=== PATIENT | female | born 1965 | race African-American/Black ===

== ENCOUNTER 2016-09-28 09:47 | Emergency (ER) | payer MEDICARE, OTHER ==
[~2016-09-28] VITALS: Ht 157.5 cm; Wt 77.1 kg
[~2016-09-28 09:47] MED LIST: ALBU8.5H6 INH; LOSA25TA4 PO; LURA20TA PO
[2016-09-28 10:17] VITALS: BP 148/93
[2016-09-28] MEDS ORDERED: PERM60CR11 TP (10:31)
[2016-09-28] MEDS ORDERED: PRED20TA PO (10:31)
--- NOTE | 2016-09-28 10:31 | PHYS DOC ---
Past Medical History Past Medical History: Bronchitis, Depression, Diabetes-Type II, Hypertension Past Surgical History: Hysterectomy Smoking: Less than 1pk/day Alcohol Use: None Drug Use: None Adult General Chief Complaint Chief Complaint: SKIN PROBLEM HPI HPI Patient is a 51 year old female who presents with itchy rash for the last 3-4 weeks. She denies any change in household products or new medications. No other household members have a similar rash. She has tried washing her linens without improvement in her rash. She's been taking up to 4 Benadryl at a time to help with the itching. She denies fevers, dyspnea, or angioedema. She does not have a PCP. Review of Systems Review of Systems Constitutional: Denies fever or chills. [] Eyes: Denies change in visual acuity, redness, or eye pain. [] HENT: Denies ear pain, nasal congestion or sore throat. Denies angioedema. Respiratory: Denies cough or shortness of breath. [] Musculoskeletal: Denies back pain or joint pain. [] Integument: Reports pruritic rash. Neurologic: Denies headache, focal weakness or sensory changes. [] All systems reviewed and negative unless otherwise stated in the HPI. Allergies Allergies Allergies Coded Allergies Type Severity Reaction Last Updated Verified No Known Drug Allergies 09/28/16 No Physical Exam Physical Exam Constitutional: Well developed, well nourished, no acute distress, non-toxic appearance. [] HENT: Normocephalic, atraumatic, oropharynx moist. [] Eyes: PERRLA, EOMI, conjunctiva normal, no discharge. [] Neck: Normal range of motion, no tenderness, supple, no stridor. [] Skin: Warm, dry, no erythema. Generalized, scattered, fine papular lesions with diffuse excoriation from scratching. There is no evidence of abscess or cellulitis associated with any of the lesions. Back: No midline tenderness, no CVA tenderness. [] Extremities: No tenderness, ROM intact, no edema. Distal pulses equal bilaterally. [] Neurologic: Alert and oriented X 3, normal motor function, normal sensory function, no focal deficits noted. [] Psychologic: Affect normal, judgement normal, mood normal. [] Current Patient Data Vital Signs Vital Signs Date Time Temp Pulse Resp B/P Pulse Ox O2 Delivery O2 Flow Rate FiO2 09/28/16 10:17 97.5 73 18 98 Room Air 97.5 EKG EKG [] Radiology/Procedures Radiology/Procedures [] Course & Med Decision Making Course & Med Decision Making Pertinent Labs and Imaging studies reviewed. (See chart for details) [] Dragon Disclaimer Dragon Disclaimer This electronic medical record was generated, in whole or in part, using a voice recognition dictation system. Departure Departure Impression: Primary Impression: Rash Disposition: HOME, SELF-CARE Condition: STABLE Referrals: PEGGY GUEVARA MD Patient Instructions: Rash, Eekn-ck-Xkec Additional Instructions: You have been seen for rash. At this time, it is unclear what is causing the rash, however it appears that it may be due to scabies. Please apply the prescribed cream all over your body and leave on for 8-12 hours. Please wash all of your linens in hot water while you are doing the skin treatment. Please follow-up with the electrical engineering drafting officer listed below if your rash continues. Return to emergency department if you have any new or concerning symptoms. Scripts Permethrin (Elimite)60 Gm Cream..g.60 Gm TP 1X #60 Prov:SIDNEY ÁLVAREZ 09/28/16 Prednisone 20 Mg [id number] Mg PO DAILY 5 Days Prov:SIDNEY ÁLVAREZ 09/28/16 SIDNEY ÁLVAREZ Sep 28, 2016 10:31
== END 2016-09-28 10:50 | disposition home or self-care (01) ==
LOC: ER 09:47
DX: R21 Rash and other nonspecific skin eruption (principal); E11.9 Type 2 diabetes mellitus without complications; I10 Essential (primary) hypertension; F17.200 Nicotine dependence, unspecified, uncomplicated
CPT/HCPCS: 99283

== ENCOUNTER 2017-02-07 13:14 | Emergency (ER) | payer MEDICARE, OTHER ==
[~2017-02-07] VITALS: Ht 157.5 cm; Wt 83.5 kg
[~2017-02-07 13:14] MED LIST changes: +PERM60CR11 TP; +PRED20TA PO
[2017-02-07 13:22] VITALS: BP 142/88
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
[2017-02-07] MEDS ORDERED: HYDR-971 PO (14:12)
[2017-02-07] MEDS ORDERED: HYDROcodone/APAP 5/325MG 1 TAB TABLET PO ONE (14:30)
== END 2017-02-07 14:30 | disposition home or self-care (01) ==
LOC: ER 13:42
DX: S22.42XA Multiple fractures of ribs, left side, initial encounter for closed fracture (principal); F32.9 Major depressive disorder, single episode, unspecified; E11.9 Type 2 diabetes mellitus without complications; I10 Essential (primary) hypertension; X58.XXXA Exposure to other specified factors, initial encounter; Y93.89 Activity, other specified; Y92.89 Other specified places as the place of occurrence of the external cause; Y99.8 Other external cause status
CPT/HCPCS: 71111; 99284-25

== ENCOUNTER 2017-05-05 12:03 | Emergency (ER) | payer OTHER ==
[~2017-05-05] VITALS: Ht 157.5 cm; Wt 66.7 kg
[~2017-05-05 12:03] MED LIST changes: +HYDR-971 PO
[2017-05-05 12:19] VITALS: BP 149/93
[2017-05-05] MEDS ORDERED: CYCL5TAB PO (12:58)
[2017-05-05] MEDS ORDERED: PRED50TA PO (12:58)
--- NOTE | 2017-05-05 12:58 | PHYS DOC ---
Past Medical History Past Medical History: Anxiety, Bronchitis, Depression, Diabetes-Type II, Hypertension Past Surgical History: Hysterectomy Alcohol Use: None Drug Use: None Adult General Chief Complaint Chief Complaint: SKIN RASH/ABSCESS HPI HPI Patient is a 51 year old female who presents with rash. The patient reports diffuse pruritic rash to face, torso, extremities. She denies exposure to plants, new soaps/lotions/detergents, foods/medications. She took benadryl at home without relief. Denies face/tongue/lip swelling, shortness of breath, vomiting, diarrhea. Also complains of lower back pain without injury or fall. She denies abdominal pain, extremity numbness/weakness, saddle anesthesia, bowel /bladder incontinence/retention. Review of Systems Review of Systems Constitutional: Denies fever or chills HENT: Denies nasal congestion or sore throat Respiratory: Denies cough or shortness of breath Cardiovascular: Denies chest pain GI: Denies abdominal pain, nausea, vomiting, or diarrhea Musculoskeletal: Reports back pain, denies joint pain Integument: Reports rash Neurologic: Denies headache Allergies Allergies Allergies Coded Allergies Type Severity Reaction Last Updated Verified No Known Drug Allergies 09/28/16 No Physical Exam Physical Exam Constitutional: Well developed, well nourished, no acute distress, non-toxic appearance. HENT: Normocephalic, atraumatic, bilateral external ears normal, oropharynx moist, nose normal. no face/tongue/lip swelling. Eyes: conjunctiva normal, no discharge. Neck: supple, no stridor. Cardiovascular: RRR, no murmurs, no edema. Lungs & Thorax: LCTAB, no wheezing, no respiratory distress. Abdomen: nondistended. Skin: diffuse erythema to face, torso, extremities without obvious discrete lesions though there are excoriations Back: no midline tenderness with palpation of spine, so step offs, lower lumbar region there is bilateral paraspinous muscle tenderness, no CVA tenderness Extremities: No tenderness, no edema. Neurologic: Alert and oriented X 3, symmetric strength/sensation to lower extremities. Current Patient Data Vital Signs Vital Signs Date Time Temp Pulse Resp B/P (MAP) Pulse Ox O2 Delivery O2 Flow Rate FiO2 05/05/17 12:19 98.0 84 18 96 Room Air 98.0 EKG EKG [] Radiology/Procedures Radiology/Procedures [] Course & Med Decision Making Course & Med Decision Making Pertinent Labs and Imaging studies reviewed. (See chart for details) The patient presents with pruritic rash likely contact dermatitis. Gave prescription for prednisone & recommend continue benadryl. Flexeril for back pain plus NSAIDs, apply heating pad & try to stretch. Follow up with PCP in 2- 3 days if not improving. Come back for face/tongue/lip swelling, severe shortness of breath, symptoms of cauda equina syndrome, any otherwise worsening condition. Discharged home in stable condition. [] Dragon Disclaimer Dragon Disclaimer This electronic medical record was generated, in whole or in part, using a voice recognition dictation system. Departure Departure Impression: Primary Impression: Contact dermatitis Additional Impression: Lower back pain Disposition: HOME, SELF-CARE Condition: STABLE Referrals: UNKNOWN PCP NAME (PCP) Patient Instructions: Back Pain, Adult, Acch-qa-Brmf, Contact Dermatitis, Easy- to-Read Additional Instructions: You were seen in the emergency department today for rash and back pain. Please continue to take Benadryl for itching. Take prednisone to control allergic symptoms. Use Flexeril as needed for pain and spasm in your back. Use a heating pad. Follow-up with primary care physician for additional concerns. Return to the emergency department for face/tongue/lip swelling, severe shortness of breath, numbness or weakness in your legs, loss of control of bowels or bladder , any otherwise worsening condition. Scripts Cyclobenzaprine Hcl (CYCLOBENZAPRINE HCL) 5 Mg Tablet 1 TAB PO TID Y for MUSCLE SPASMS, #10 TAB Prov: HAILEE PRICE MD 05/05/17 Prednisone (PREDNISONE) 50 Mg Tablet 1 TAB PO DAILY, #5 TAB Prov: HAILEE PRICE MD 05/05/17 Problem Qualifiers Primary Impression: Contact dermatitis Contact dermatitis type: unspecified Contact dermatitis trigger: unspecified trigger Qualified Codes: L25.9 - Unspecified contact dermatitis, unspecified cause Additional Impression: Lower back pain Chronicity: chronic Back pain laterality: midline Sciatica presence: without sciatica Qualified Codes: M54.5 - Low back pain; G89.29 - Other chronic pain HAILEE PRICE MD May 05, 2017 12:58
== END 2017-05-05 13:10 | disposition home or self-care (01) ==
LOC: ER 12:03
DX: L25.9 Unspecified contact dermatitis, unspecified cause (principal); M54.5 Low back pain; E11.9 Type 2 diabetes mellitus without complications; I10 Essential (primary) hypertension; F32.9 Major depressive disorder, single episode, unspecified; Z90.710 Acquired absence of both cervix and uterus
CPT/HCPCS: 99283

== ENCOUNTER 2017-12-03 09:53 | Emergency (ER) | payer OTHER | END 2017-12-03 11:00 | disposition home or self-care (01) | LOC: ER 09:53 | DX: H10.9 Unspecified conjunctivitis (principal); E11.9 Type 2 diabetes mellitus without complications; I10 Essential (primary) hypertension | CPT/HCPCS: 99283 ==

== ENCOUNTER 2018-06-28 13:33 | Emergency (ER) | payer OTHER ==
[~2018-06-28] VITALS: Ht 157.5 cm; Wt 70.8 kg
[~2018-06-28 13:33] MED LIST changes: +CYCL5TAB PO; -LOSA25TA4 PO; +LOSA25TA5 PO; +OFLO5DRO EACHEYE; +PRED50TA PO
--- NOTE | 2018-06-28 14:27 | RAD ---
Portable chest, 06/28/2018: HISTORY: Shortness of breath Comparison is made to a study from 03/21/2014. The heart size and pulmonary vascularity are normal. There is minimal linear atelectasis in the right base. No pulmonary consolidation is seen. There is no evidence of pleural fluid. IMPRESSION: 1. Minimal right basilar atelectasis. 2. The chest is otherwise unremarkable. Electronically signed by: Mark Rebolledo MD (06/28/2018 2:24 PM) [facility]
[2018-06-28 14:31] LABS: BILIRUBIN,URINE SMALL (NEG); CLARITY,URINE CLEAR; COLOR,URINE AMBER; NITRITE,URINE NEGATIVE (NEG); PROTEIN,URINE NEGATIVE (NEG-TRACE); UROBILINOGEN,URINE >=8.0 mg/dL (0.2 mg/dL)
[2018-06-28 14:34] LABS: SQUAMOUS EPITHELIAL CELL,UR FEW /LPF
[2018-06-28 14:35] LABS: BACTERIA,URINE FEW /HPF (0-FEW); WBC,URINE OCC /HPF (0-4)
[2018-06-28 14:37] LABS: TRICHOMONAS,URINE PRESENT
--- NOTE | 2018-06-28 14:38 | EKG ---
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
[2018-06-28] MEDS ORDERED: HYDROcodone/APAP 5/325MG 1 TAB TABLET PO ONE (15:15)
--- NOTE | 2018-06-28 15:19 | PHYS DOC ---
Past Medical History Past Medical History: Anxiety, Bipolar, Bronchitis, Depression, Diabetes-Type II, Hypertension, Hepatitis Past Surgical History: Hysterectomy Alcohol Use: Occasionally Drug Use: None Adult General Chief Complaint Chief Complaint: HEADACHE HPI HPI Patient is a 52 year old [place] female with history of bipolar, anxiety who presents with left sided chest wall pain described as sharp, constant continuous for the past several hours. Pain is nonradiating. It is not associated with nausea vomiting fevers chills or sweats. Patient reports with productive cough with yellow sputum for the past several days. Also reports some urinary frequency and urgency with incontinence for the past 2 weeks. Reports a headache and sore throat secondary to cough. Patient receives monthly Haldol injection with recent injection last week. She has not follow-up with primary care provider a routine basis. No other acute symptoms or complaints. [] Review of Systems Review of Systems ROS as per HPI [] All other systems were reviewed and found to be within normal limits, except as documented in this note. Current Medications Current Medications Current Medications Medications (Trade) Dose Ordered Sig/Brianna Start Time Stop Time Status Last Admin Dose Admin Acetaminophen/ Hydrocodone Bitart (Lortab 5/325) 1 tab 1X ONCE 06/28/18 15:15 06/28/18 15:17 DC 06/28/18 15:35 1 TAB Allergies Allergies Allergies Coded Allergies Type Severity Reaction Last Updated Verified No Known Drug Allergies 09/28/16 No Physical Exam Physical Exam Constitutional: Well developed, well nourished, no acute distress, non-toxic appearance. [] HENT: Normocephalic, atraumatic, bilateral external ears normal, oropharynx moist, no oral exudates, nose normal. [] Eyes: PERRLA, EOMI, conjunctiva normal, no discharge. [] Neck: Normal range of motion, no tenderness, supple, no stridor. [] Cardiovascular:Heart rate regular rhythm, no murmur., negative Homans signs. [] Lungs & Thorax: patient's nonlabored, mildly diminished, coarse breath sounds bilaterally, left anterior chest, mid rib bony tenderness, no subcutaneous emphysema or over on crepitus. [] Abdomen: Bowel sounds normal, soft, no tenderness, no masses, no pulsatile masses. [] Extremities: No tenderness, no cyanosis, no clubbing, ROM intact, no edema. [] Neurologic: Alert and oriented, normal motor function, normal sensory function, no focal deficits noted. [] Psychologic: flat of affect.[] Current Patient Data Vital Signs Vital Signs Date Time Temp Pulse Resp B/P (MAP) Pulse Ox O2 Delivery O2 Flow Rate FiO2 06/28/18 15:35 28 95 Room Air 06/28/18 13:42 98.8 85 111/71 (84) 98.8 Lab Values Laboratory Tests Test 06/28/18 14:23 06/28/18 15:30 Urine Collection Type Unknown Urine Color Blessing Urine Clarity Clear Urine pH 6.0 Urine Specific [place] 1.025 Urine Protein Negative mg/dL (NEG-TRACE) Urine Glucose (UA) Negative mg/dL (NEG) Urine Ketones (Stick) Negative mg/dL (NEG) Urine Blood Negative (NEG) Urine Nitrite Negative (NEG) Urine Bilirubin Small (NEG) Urine Urobilinogen Dipstick >=8.0 mg/dL (0.2 mg/dL) Urine Leukocyte Esterase Small (NEG) Urine RBC 1-2 /HPF (0-2) Urine WBC Occ /HPF (0-4) Urine Squamous Epithelial Cells Few /LPF Urine Bacteria Few /HPF (0-FEW) Urine Mucus Mod /LPF Urine Trichomonas Present White Blood Count 8.4 x10^3/uL (4.0-11.0) Red Blood Count 4.69 x10^6/uL (3.50-5.40) Hemoglobin 14.8 g/dL (12.0-15.5) Hematocrit 44.2 % (36.0-47.0) Mean Corpuscular Volume 94 fL (79-100) Mean Corpuscular Hemoglobin 32 pg (25-35) Mean Corpuscular Hemoglobin Concent 34 g/dL (31-37) Red Cell Distribution Width 13.3 % (11.5-14.5) Platelet Count 186 x10^3/uL (140-400) Neutrophils (%) (Auto) 60 % (31-73) Lymphocytes (%) (Auto) 30 % (24-48) Monocytes (%) (Auto) 10 % (0-9) H Eosinophils (%) (Auto) 0 % (0-3) Basophils (%) (Auto) 0 % (0-3) Neutrophils # (Auto) 5.1 x10^3uL (1.8-7.7) Lymphocytes # (Auto) 2.5 x10^3/uL (1.0-4.8) Monocytes # (Auto) 0.8 x10^3/uL (0.0-1.1) Eosinophils # (Auto) 0.0 x10^3/uL (0.0-0.7) Basophils # (Auto) 0.0 x10^3/uL (0.0-0.2) D-Dimer (Loren) 0.49 ug/mlFEU (0.00-0.50) Sodium Level 146 mmol/L (136-145) H Potassium Level 4.1 mmol/L (3.5-5.1) Chloride Level 107 mmol/L (98-107) Carbon Dioxide Level 27 mmol/L (21-32) Anion Gap 12 (6-14) Blood Urea Nitrogen 7 mg/dL (7-20) Creatinine 0.6 mg/dL (0.6-1.0) Estimated GFR (Cockcroft-Gault) 126.5 BUN/Creatinine Ratio 12 (6-20) Glucose Level 95 mg/dL (70-99) Calcium Level 9.2 mg/dL (8.5-10.1) Total Bilirubin 0.4 mg/dL (0.2-1.0) Aspartate Amino Transferase (AST) 34 U/L (15-37) Alanine Aminotransferase (ALT) 52 U/L (14-59) Alkaline Phosphatase 109 U/L (46-116) Troponin I Quantitative < 0.017 ng/mL (0.000-0.055) Total Protein 7.5 g/dL (6.4-8.2) Albumin 3.1 g/dL (3.4-5.0) L Albumin/Globulin Ratio 0.7 (1.0-1.7) L Laboratory Tests 06/28/18 15:30 Laboratory Tests 06/28/18 15:30 EKG EKG [EKG: REVIEWED] Radiology/Procedures Radiology/Procedures Chest x-ray: No acute cardiopulmonary disease..] Course & Med Decision Making Course & Med Decision Making Pertinent Labs and Imaging studies reviewed. (See chart for details) [ with multiple medical complaints and productive cough with yellow sputum left anterior chest wall pain reproducible with deep breathing cough. EKG, labs and imaging was nondiagnostic. Will treat with acute bronchitis with pleurisy. Recommend PCP follow-up with supportive and antibiotic care. Term precautions reviewed. Patient verbalizes understanding and agreement discharge instructions prior to departure.] Dragon Disclaimer Dragon Disclaimer This electronic medical record was generated, in whole or in part, using a voice recognition dictation system. Departure Departure Impression: Primary Impression: Acute bronchitis Additional Impression: Pleurisy Disposition: HOME, SELF-CARE Condition: GOOD Referrals: NO PCP (PCP) Patient Instructions: Acute Bronchitis, Kbyk-ec-Bsjv, Pleurisy, [id number] Additional Instructions: Please Take antibiotics and use inhaler as directed. Take Tylenol for chest wall pain. Follow-up with your PCP in 2-3 days for reevaluation. Return to the ED if new or worsening symptoms. Problem Qualifiers CURTIS LAWSON DO Jun 28, 2018 15:19
[2018-06-28 16:06] LABS: BASO % 0 % (0-3); EOS % 0 % (0-3); HEMATOCRIT 44.2 % (36.0-47.0); HEMOGLOBIN 14.8 g/dL (12.0-15.5); LYMPH # 2.5 x10^3/uL (1.0-4.8); LYMPH % 30 % (24-48); MEAN CORPUSCULAR HEMOGLOBIN 32 pg (25-35); MEAN CORPUSCULAR HGB CONC 34 g/dL (31-37); MEAN CORPUSCULAR VOLUME 94 fL (79-100); MONO # 0.8 x10^3/uL (0.0-1.1); MONO % 10 % (0-9); NEUT # 5.1 x10^3uL (1.8-7.7); NEUT % 60 % (31-73); PLATELET COUNT 186 x10^3/uL (140-400); RED BLOOD COUNT 4.69 x10^6/uL (3.50-5.40); RED CELL DISTRIBUTION WIDTH 13.3 % (11.5-14.5); WHITE BLOOD COUNT 8.4 x10^3/uL (4.0-11.0)
[2018-06-28 16:18] LABS: CALCIUM 9.2 mg/dL (8.5-10.1); CREATININE 0.6 mg/dL (0.6-1.0); GFR 126.5; POTASSIUM 4.1 mmol/L (3.5-5.1)
[2018-06-28 16:30] LABS: ALBUMIN 3.1 g/dL (3.4-5.0); ALBUMIN/GLOBULIN RATIO 0.7 (1.0-1.7); TOTAL BILIRUBIN 0.4 mg/dL (0.2-1.0); TOTAL PROTEIN 7.5 g/dL (6.4-8.2)
[2018-06-28] MEDS ORDERED: CEPHALEXIN 250 MG CAPSULE. PO STA (17:11)
[2018-06-28] MEDS ORDERED: CEPH-264 PO (17:14)
[2018-06-28] MEDS ORDERED: PROAIR HFA8.5 GM INH (17:14)
[2018-06-28 18:04] VITALS: BP 129/67
== END 2018-06-28 18:19 | disposition home or self-care (01) ==
LOC: ER 13:33
DX: J20.9 Acute bronchitis, unspecified (principal); R09.1 Pleurisy; F31.9 Bipolar disorder, unspecified; F41.9 Anxiety disorder, unspecified; E11.9 Type 2 diabetes mellitus without complications; I10 Essential (primary) hypertension; R32 Unspecified urinary incontinence; R39.15 Urgency of urination; Z90.710 Acquired absence of both cervix and uterus
CPT/HCPCS: 36415; 71045; 80053; 81001; 84484; 85025; 85379; 87086; 93005; 99285-25

== ENCOUNTER 2019-02-08 12:42 | Emergency (ER) | payer OTHER ==
[~2019-02-08] VITALS: Ht 162.6 cm; Wt 77.3 kg
[~2019-02-08 12:42] MED LIST changes: +ALBU2.5V8 INH; +CEPH-264 PO; +HYDR-3164 PO; -HYDR-971 PO; -LOSA25TA5 PO; +LOSA25TA54 PO
[2019-02-08] MEDS ORDERED: KETOROLAC 30 MG/ML VIAL. IV ONE (13:30)
[2019-02-08 13:31] LABS: BILIRUBIN,URINE NEGATIVE (NEG); CLARITY,URINE CLEAR; COLOR,URINE YELLOW; NITRITE,URINE NEGATIVE (NEG); PROTEIN,URINE NEGATIVE (NEG-TRACE)
--- NOTE | 2019-02-08 13:38 | RAD ---
CHEST PA LATERAL History: Left-sided chest pain for 3 weeks Comparison: 06/28/2018 Findings: 2 views of the chest are submitted. There is again degree of elevation of the right hemidiaphragm. There is some atherosclerotic calcification near aortic arch. There is no lobar consolidation, pleural fluid, pneumothorax. There is some linear opacity of the right lung base in region of the right upper or right middle lobe. No displaced left rib fracture is identified by radiographs. Thoracic vertebral body stature is overall preserved. Heart size is within normal limits. Impression: 1. There is some linear opacity of the right lung base, likely atelectasis. Electronically signed by: Miki Finn MD (02/08/2019 1:35 PM) [id number]
[2019-02-08 13:41] LABS: BARBITURATES NEG (NEG); BENZODIAZEPINES NEG (NEG); CANNABINOIDS POS (NEG); COCAINE POS (NEG); METHADONE NEG (NEG); OPIATES NEG (NEG); PHENCYCLIDINE POS (NEG)
[2019-02-08 13:42] LABS: BASO % 0 % (0-3); EOS % 1 % (0-3); HEMATOCRIT 46.6 % (36.0-47.0); HEMOGLOBIN 15.5 g/dL (12.0-15.5); LYMPH # 2.8 x10^3/uL (1.0-4.8); LYMPH % 38 % (24-48); MEAN CORPUSCULAR HEMOGLOBIN 31 pg (25-35); MEAN CORPUSCULAR HGB CONC 33 g/dL (31-37); MEAN CORPUSCULAR VOLUME 93 fL (79-100); MONO # 0.5 x10^3/uL (0.0-1.1); MONO % 7 % (0-9); NEUT # 3.9 x10^3uL (1.8-7.7); NEUT % 54 % (31-73); PLATELET COUNT 171 x10^3/uL (140-400); RED BLOOD COUNT 5.01 x10^6/uL (3.50-5.40); RED CELL DISTRIBUTION WIDTH 13.4 % (11.5-14.5); WHITE BLOOD COUNT 7.2 x10^3/uL (4.0-11.0)
[2019-02-08 13:42] LABS: AMPHETAMINE/METHAMPHETAMINE NEG (NEG)
[2019-02-08 13:43] LABS: BACTERIA,URINE 0 /HPF (0-FEW); RBC,URINE 0 /HPF (0-2); SQUAMOUS EPITHELIAL CELL,UR FEW /LPF; WBC,URINE 0 /HPF (0-4)
[2019-02-08 14:00] LABS: CALCIUM 9.1 mg/dL (8.5-10.1); CREATININE 0.7 mg/dL (0.6-1.0); GFR 105.5; PROTHROMBIN TIME PATIENT 13.8 SEC (11.7-14.0)
[2019-02-08 14:04] LABS: ALBUMIN 3.3 g/dL (3.4-5.0); ALBUMIN/GLOBULIN RATIO 0.7 (1.0-1.7); MAGNESIUM 1.7 mg/dL (1.8-2.4); TOTAL BILIRUBIN 0.5 mg/dL (0.2-1.0)
--- NOTE | 2019-02-08 14:25 | EKG ---
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
[2019-02-08] MEDS ORDERED: CONTRAST GIVEN. MC PRN (14:30)
--- NOTE | 2019-02-08 14:46 | RAD ---
EXAM: CT Abdomen and Pelvis with IV contrast CLINICAL HISTORY: Progressing lower abdominal pain for several weeks.. COMPARISON: none TECHNIQUE: Helical CT of the abdomen and pelvis was performed following the administration of intravenous contrast. Axial, coronal and sagittal reformatted images were generated. PQRS compliance statement - One or more of the following individualized dose reduction techniques were utilized for this study: 1. Automated exposure control 2. Adjustment of the mA and/or kV according to patient size 3. Use of iterative reconstruction technique FINDINGS: Lower chest: Linear opacities in the left lower lobe, right lower lobe and middle lobe likely scarring/atelectasis. No pleural effusion. Abdomen and Pelvis: Diffuse hepatic hypoattenuation may be seen with hepatic steatosis. Liver is enlarged measuring approximately 20 cm in length. No focal liver lesion. Gallstones are seen within the gallbladder. No biliary ductal dilatation. Spleen is unremarkable. Adrenal glands are normal. Symmetric nephrograms. No focal renal lesion. No hydronephrosis. No hydroureter. Colonic diverticulosis without evidence for acute diverticulitis. The appendix is normal. No small or large bowel dilatation to suggest bowel obstruction. Fat-containing periumbilical hernia with mild associated fat infiltration. No abdominal or pelvic ascites. No abdominal or pelvic lymphadenopathy. Symphysis pubis degenerative changes are seen. Bones: Degenerative changes of the spine are seen. IMPRESSION: 1. Small fat-containing periumbilical hernia is seen with mild associated fat infiltration. Given the associated fat infiltration, this may be symptomatic. 2. Cholelithiasis 3. Hepatomegaly and hepatic steatosis 4. Diverticulosis without evidence for acute diverticulitis. 5. Appendix is normal. Electronically signed by: Calos Hernandez MD (02/08/2019 2:43 PM) [id number]
[2019-02-08] MEDS ORDERED: IOHEXOL 300 MG/ML 100ML VIAL. IV ONE (15:00)
[2019-02-08] MEDS ORDERED: NAPR-683 PO (15:27)
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
[2019-02-08 15:34] VITALS: BP 156/82
== END 2019-02-08 15:56 | disposition home or self-care (01) ==
LOC: ER 12:42
DX: R07.89 Other chest pain (principal); K80.20 Calculus of gallbladder without cholecystitis without obstruction; R79.89 Other specified abnormal findings of blood chemistry; F14.10 Cocaine abuse, uncomplicated; F12.10 Cannabis abuse, uncomplicated; F10.10 Alcohol abuse, uncomplicated; Y90.9 Presence of alcohol in blood, level not specified; F16.10 Hallucinogen abuse, uncomplicated; Z71.6 Tobacco abuse counseling; F41.9 Anxiety disorder, unspecified; F31.9 Bipolar disorder, unspecified; E11.9 Type 2 diabetes mellitus without complications; I10 Essential (primary) hypertension; Z90.710 Acquired absence of both cervix and uterus
CPT/HCPCS: 36415; 71046; 74177; 80053; 80307; 81001; 82550; 83690; 83735; 83880; 84484; 85025; 85610; 93005; 96374; 99285; J1885; Q9967

== ENCOUNTER 2019-12-04 09:12 | Emergency (ER) | payer OTHER ==
[~2019-12-04] VITALS: Ht 157.5 cm; Wt 75.0 kg
[~2019-12-04 09:12] MED LIST changes: +NAPR-683 PO
[2019-12-04 09:50] VITALS: BP 177/66
--- NOTE | 2019-12-04 10:03 | PHYS DOC ---
Past Medical History Past Medical History: Anxiety, Bipolar, Bronchitis, Depression, Diabetes-Type II, Hypertension, Hepatitis Past Surgical History: Hysterectomy Smoking Status: Current Every Day Smoker Alcohol Use: Occasionally Drug Use: None Adult General Chief Complaint Chief Complaint: COUGH HPI HPI Patient is a 54 year old female who presents with cough that is been ongoing for 2 weeks accompanied by a runny nose. The patient denies any other symptoms including shortness of breath or fever. The patient also denied initially runny nose however she did have a tissue in her hand and her nose was running. She denies travel or sick contacts. Complete ROS were reviewed and found to be within normal limits, except as documented in the HPI Allergies Allergies Allergies Coded Allergies Type Severity Reaction Last Updated Verified No Known Drug Allergies 09/28/16 No Physical Exam Physical Exam Constitutional: Well developed, well nourished, no acute distress, non-toxic appearance. [] HENT: Normocephalic, atraumatic, bilateral external ears normal, oropharynx moist, tonsils are 2+/4 with no oral exudates, nose turbinates inflammed with mucous noted. Eyes: PERRLA, EOMI, conjunctiva normal, no discharge. [] Neck: Normal range of motion, no tenderness, supple, no stridor. [] Cardiovascular:Heart rate regular rhythm, no murmur [] Lungs & Thorax: Bilateral breath sounds clear to auscultation [] Neurologic: Alert and oriented X 3, normal motor function, normal sensory function, no focal deficits noted. [] Psychologic: Affect normal, judgement normal, mood normal. [] Current Patient Data Vital Signs Vital Signs Date Time Temp Pulse Resp B/P (MAP) Pulse Ox O2 Delivery O2 Flow Rate FiO2 12/04/19 09:50 98.2 66 18 177/66 (103) 96 Room Air 98.2 Lab Values Laboratory Tests Test 12/04/19 09:50 12/04/19 10:00 Influenza Type A Antigen Negative (NEGATIVE) Influenza Type B Antigen Negative (NEGATIVE) Group A Streptococcus Rapid Negative (NEGATIVE) EKG EKG [] Radiology/Procedures Radiology/Procedures [][facility] [address] [place] [address] IMAGING REPORT Signed PATIENT: NUNO ALEMAN ACCOUNT: [id number] : 1965 LOCATION: ER AGE: 54 SEX: F EXAM STATUS: REG ER ORD. PHYSICIAN: ARIANNA CUENCA APRN REASON: cough PROCEDURE: PORTABLE CHEST 1V PORTABLE CHEST 1V Clinical indications: Cough. COMPARISON: February 08, 2019. Findings: Chronic elevation of the right hemidiaphragm is seen. However, this has increased from the prior study and now the right hemidiaphragm extends up to the level of the right hilum. Chronic right lung base linear atelectasis or scarring is seen. Otherwise no new lung consolidation or perihilar pulmonary edema is seen. No pleural effusion or pneumothorax is evident. The heart size, pulmonary vasculature, mediastinum and both mirza are unremarkable. Impression: Chronic elevation of the right hemidiaphragm which has increased from the previous study. Chronic linear atelectasis or scarring Electronically signed by: Yahir Singh MD (12/04/2019 10:33 AM) [facility] DICTATED and SIGNED BY: YAHIR SINGH MD DATE: 12/04/19 1033 Course & Med Decision Making Course & Med Decision Making Pertinent Labs and Imaging studies reviewed. (See chart for details) The patient has a cough, denies fever. Will get a chest x-ray, strep throat test, and flu test. If all these tests are negative we will have the patient go under self quarantine for the next 14 days due to being unable to rule out coronavirus. Flu/Strep is negative. Dragon Disclaimer Dragon Disclaimer This electronic medical record was generated, in whole or in part, using a voice recognition dictation system. Departure Departure Impression: Primary Impression: Viral syndrome Disposition: 01 HOME, SELF-CARE Condition: STABLE Referrals: TONEY DIAZ MD (PCP) Patient Instructions: Viral Syndrome Additional Instructions: Thank you for visiting [facility]. We appreciate you trusting us with your care. If any additional problems come up don't hesitate to return to visit us. Please follow up with your primary care provider so they can plan additional care if needed and know about the problem that you had. If symptoms worsen come back to the Emergency Department. Any concerning symptoms that start such as chest pain, shortness of air, weakness or numbness on one side of the body, running high fevers or any other concerning symptoms return to the ER. You have a viral syndrome which may include symptoms like muscle aches, fevers, chills, runny nose, cough, sneezing, sore throat, vomiting, or diarrhea. One of the potential viruses that you may have is SARS-CoV-2, the virus that causes COVID-19, also known as the Coronavirus. You are just as likely to have a different viral infection such as the common cold, flu, etc. Most patients with the Coronavirus have mild symptoms and recover on their own. Resting, staying hydrated, and sleep from known cases can be helpful. As of todays visit, you are well enough to go home and treat your symptoms with oral fluids and over the counter medications. Coronavirus testing is not performed on most people with mild symptoms who are being discharged from the emergency department. If Coronavirus testing was performed the results will not be available for possibly up to 2-3 days. If your result is positive you will be contacted. Please follow the following precautions at home: 1) Stay home except to get medical care. 2) As advised by the CDC we recommend you stay in your home and minimize contact with other people. We do not want you to spread the infection. 3) Those who are older or have significant medical issues may have more severe symptoms from this infection. We recommend self-isolation,FOR AT LEAST 7 DAYS after your 1st day of symptoms. AFTER you feel better please wait AT LEAST ANOTHER WEEK before returning to regular activities and being around other people! 4) IF you become sicker and have difficulty breathing, chest pain, unable to eat/drink, severe vomiting, diarrhea, or weakness you may need to return to the Emergency Department. 5) You should restrict activities outside your home, except for getting medical care. DO NOT go to work, school, or public areas. Avoid using public transportation, ride sharing, or taxis. 6) Separate yourself from other people in your home. You should use a separate bathroom if possible. 7) Avoid sharing personal household items such as dishes, cups, eating utensils, towels, etc. 8) Clean all high touch surfaces every day (door knobs, counter tops, etc). Use a household cleaning spray or wipe per label instructions. 9) Clean your hands often. Wash your hands with soap and water for at least 20 seconds. 10) Cover your mouth and nose with a tissue when you cough or sneeze. 11) Throw used tissues in a trash can and immediately wash your hands. For additional resources please visit the CDC website or the [facility] ([phone]). Scripts Benzonatate (TESSALON PERLE) 100 Mg Capsule 100 MG PO TID PRN for COUGH, #21 CAP Prov: ARIANNA CUENCA APRN 12/04/19 ARIANNA CUENCA APRN Dec 04, 2019 10:02
[2019-12-04 10:21] LABS: INFLUENZA A PATIENT NEGATIVE (NEGATIVE); INFLUENZA B PATIENT NEGATIVE (NEGATIVE)
--- NOTE | 2019-12-04 10:36 | RAD ---
PORTABLE CHEST 1V Clinical indications: Cough. COMPARISON: February 08, 2019. Findings: Chronic elevation of the right hemidiaphragm is seen. However, this has increased from the prior study and now the right hemidiaphragm extends up to the level of the right hilum. Chronic right lung base linear atelectasis or scarring is seen. Otherwise no new lung consolidation or perihilar pulmonary edema is seen. No pleural effusion or pneumothorax is evident. The heart size, pulmonary vasculature, mediastinum and both mirza are unremarkable. Impression: Chronic elevation of the right hemidiaphragm which has increased from the previous study. Chronic linear atelectasis or scarring Electronically signed by: Isaiah Singh MD (12/04/2019 10:33 AM) [facility] [place]
[2019-12-04] MEDS ORDERED: BENZ100C PO (10:54)
== END 2019-12-04 11:04 | disposition home or self-care (01) ==
LOC: ER 09:12
DX: F41.9 Anxiety disorder, unspecified (principal); F31.9 Bipolar disorder, unspecified; E11.9 Type 2 diabetes mellitus without complications; I10 Essential (primary) hypertension; F17.200 Nicotine dependence, unspecified, uncomplicated
CPT/HCPCS: 71045; 87070; 87804; 87880; 99284

== ENCOUNTER 2021-03-25 03:32 | Emergency (ER) | payer OTHER ==
[~2021-03-25] VITALS: Ht 157.5 cm; Wt 63.6 kg
[~2021-03-25 03:32] MED LIST changes: +BENZ100C PO
--- NOTE | 2021-03-25 04:22 | RAD ---
Examination: 2 views of the lumbar spine HISTORY: History of low back pain for 2 months COMPARISON: None available Findings/ impression: There is mild superior endplate compression change of L1 vertebral body, age indeterminate. Mild inte rvertebral disc height loss identified in the lumbar spine particularly at L1-L2, L4-L5 vertebral lev el likely degenerative changes. Electronically signed by: Ghulam Chisholm MD (03/25/2021 4:19 AM) [id number]
--- NOTE | 2021-03-25 05:03 | PHYS DOC ---
Past Medical History Past Medical History: Anxiety, Bipolar, Bronchitis, Depression, Diabetes-Type II, Hypertension, Hepatitis Past Surgical History: Hysterectomy Smoking Status: Current Every Day Smoker Alcohol Use: Occasionally Drug Use: None General Adult EDM: Chief Complaint: LOWER BACK PAIN OR INJURY HPI: HPI: Patient is a 55 year old female who was brought here by EMS from home for evaluation of low back pain that been going on for 2 months. Patient denies any injury. Patient also complains of right lower dental pain for the last few days. Patient denies any nausea or vomiting. Patient denies any chest pain, no abdominal pain. Patient denies any cough or fever. Patient denies any weakness or numbness in her lower extremity any bowel bladder incontinence. Review of Systems: Review of Systems: Constitutional: Denies fever or chills. [] Eyes: Denies change in visual acuity. [] HENT: Denies nasal congestion or sore throat. [] Positive for dental pain. Respiratory: Denies cough or shortness of breath. [] Cardiovascular: Denies chest pain or edema. [] GI: Denies abdominal pain, nausea, vomiting, bloody stools or diarrhea. [] : Denies dysuria. [] Musculoskeletal: Positive for low back pain, Integument: Denies rash. [] Neurologic: Denies headache, focal weakness or sensory changes. [] Endocrine: Denies polyuria or polydipsia. [] Lymphatic: Denies swollen glands. [] Psychiatric: Denies depression or anxiety. [] Heart Score: C/O Chest Pain: N/A Risk Factors: Risk Factors: DM, Current or recent (<one month) smoker, HTN, HLP, family history of CAD, obesity. Risk Scores: Score 0 - 3: 2.5% MACE over next 6 weeks - Discharge Home Score 4 - 6: 20.3% MACE over next 6 weeks - Admit for Clinical Observation Score 7 - 10: 72.7% MACE over next 6 weeks - Early Invasive Strategies Current Medications: Current Medications Medications (Trade) Dose Ordered Sig/Brianna Start Time Stop Time Status Last Admin Dose Admin Amoxicillin (Amoxil) 1,000 mg 1X ONCE 03/25/21 05:00 03/25/21 05:01 UNV Ketorolac Tromethamine (Toradol Im) 60 mg 1X ONCE 03/25/21 05:30 03/25/21 05:31 Orphenadrine Citrate (Norflex) 60 mg 1X ONCE 03/25/21 05:30 03/25/21 05:31 Allergies: Allergies: Allergies Coded Allergies Type Severity Reaction Last Updated Verified No Known Drug Allergies 09/28/16 No Physical Exam: PE: Constitutional: Well developed, well nourished, no acute distress, non-toxic appearance. [] HENT: Normocephalic, atraumatic, bilateral external ears normal, oropharynx moist, no oral exudates, nose normal. Dental decay on the right lower first and second molar, no palpable abscess Eyes: PERRLA, EOMI, conjunctiva normal, no discharge. [] Neck: Normal range of motion, no tenderness, supple, no stridor. [] Cardiovascular:Heart rate regular rhythm, no murmur [] Lungs & Thorax: Bilateral breath sounds clear to auscultation [] Abdomen: Bowel sounds normal, soft, no tenderness, no masses, no pulsatile masses. [] Skin: Warm, dry, no erythema, no rash. [] Back: Tender to palpation at L2-L3 area, no CVA tenderness to palpation Extremities: No tenderness, no cyanosis, no clubbing, ROM intact, no edema. [] Neurologic: Alert and oriented X 3, normal motor function, normal sensory function, no focal deficits noted. [] Psychologic: Affect normal, judgement normal, mood normal. [] Current Patient Data: Vital Signs: Vital Signs Date Time Temp Pulse Resp B/P (MAP) Pulse Ox O2 Delivery O2 Flow Rate FiO2 03/25/21 03:35 98.7 83 22 154/84 (107) 98 Room Air 98.7 EKG: EKG: [] Radiology/Procedures: Radiology/Procedures: [][facility] [address] [place] [address] IMAGING REPORT Signed PATIENT: NUNO ALEMAN ACCOUNT: [id number] : 1965 LOCATION: ER AGE: 55 SEX: F EXAM STATUS: REG ER ORD. PHYSICIAN: DIONI COLE DO REASON: LOWER BACK PAIN FOR 2 MONTHS PROCEDURE: LUMBAR SPINE 2-3V Examination: 2 views of the lumbar spine HISTORY: History of low back pain for 2 months COMPARISON: None available Findings/ impression: There is mild superior endplate compression change of L1 vertebral body, age indeterminate. Mild intervertebral disc height loss identified in the lumbar spine particularly at L1-L2, L4-L5 vertebral level likely degenerative changes. Electronically signed by: Ghulam Chisholm MD (03/25/2021 4:19 AM) [id number] DICTATED and SIGNED BY: GHULAM CHISHOLM MD DATE: 03/25/21 [id number] 0 Course & Med Decision Making: Course & Med Decision Making Pertinent Labs and Imaging studies reviewed. (See chart for details) Patient is a 55-year-old female who present to ER due to low back pain, x-rays show a mild compression fracture at L1 area, no injury, no bowel or bladder incontinence. It is likely that this is chronic in nature. Patient also had dental decay, she would need to be on antibiotics. Patient will discharge home with naproxen and amoxicillin. Dragon Disclaimer: Dragon Disclaimer: This electronic medical record was generated, in whole or in part, using a voice recognition dictation system. Departure Departure Impression: Primary Impression: Dental decay Additional Impressions: Back pain Compression fracture of L1 lumbar vertebra Disposition: 01 HOME / SELF CARE / HOMELESS Condition: STABLE Referrals: TONEY DIAZ MD (PCP) Follow up with your doctor this week Patient Instructions: Back, Compression Fracture, Dental Abscess Additional Instructions: Thank you for visiting our Emergency Department. We appreciate you trusting us with your care. If any additional problems come up don't hesitate to return to visit us. Please follow up with your primary care provider so they can plan additional care if needed and know about the problem that you had. If symptoms worsen come back to the Emergency Department. Any concerning symptoms that start such as chest pain, shortness of air, weakness or numbness on one side of the body, running high fevers or any other concerning symptoms return to the ER. Scripts Naproxen Sodium (ANAPROX DS) 550 Mg Tablet 1 TAB PO BID PRN for PAIN for 15 Days, #30 TAB 0 Refills Prov: DIONI COLE DO 03/25/21 Amoxicillin (AMOXICILLIN) 500 Mg Capsule 1 CAP PO TID for 10 Days, #30 CAP Prov: DIONI COLE DO 03/25/21 DIONI COLE DO Mar 25, 2021 05:03
[2021-03-25] MEDS ORDERED: ORPHENADRINE CITRATE 60 MG/2 ML VIAL. IM ONE (05:30)
[2021-03-25] MEDS ORDERED: AMOXICILLIN 250 MG CAPSULE. PO ONE (05:30)
[2021-03-25] MEDS ORDERED: KETOROLAC 60 MG/2 ML VIAL. IM ONE (05:30)
[2021-03-25 05:46] VITALS: BP 128/89
[2021-03-25] MEDS ORDERED: AMOX500C PO (06:04)
[2021-03-25] MEDS ORDERED: NAPR-682 PO (06:04)
== END 2021-03-25 06:12 | disposition home or self-care (01) ==
LOC: ER 03:32
DX: M48.56XA Collapsed vertebra, not elsewhere classified, lumbar region, initial encounter for fracture (principal); K02.9 Dental caries, unspecified; F31.9 Bipolar disorder, unspecified; E11.9 Type 2 diabetes mellitus without complications; I10 Essential (primary) hypertension; F17.200 Nicotine dependence, unspecified, uncomplicated; Z90.710 Acquired absence of both cervix and uterus
CPT/HCPCS: 72100; 96372; 99284; J1885; J2360